=== PATIENT | male | born 1975 | race Two or more races ===

== ENCOUNTER 2024-09-18 08:02 | Inpatient (IN) | payer MEDICAID, OTHER ==
[~2024-09-18] VITALS: Ht 167.6 cm; Wt 100.0 kg
[2024-09-18 08:30] VITALS: PULSE 81; RESP 24; O2SAT 98
--- NOTE | 2024-09-18 08:31 | ED.PDOC ---
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 Patient does have a history of coronary artery disease hypertension he is on Plavix. He continues to smoke cigarettes. He denies any chest pain in the ER. He did have possible syncopal episode while going to the bathroom prior coming to this hospital. Chief Complaint: Syncope Time Seen by MD: 08:07 Reviewed Notes: Nurses Notes, Medications, Allergies Information Source: Patient, Emergency Med Personnel Mode of Arrival: EMS Severity: Moderate Timing: Hours Duration: Since onset Past Medical History PAST MEDICAL HISTORY: CAD, HTN Surgical History: Denies all surgeries Social History Smoker: Cigarettes Alcohol: Denies ETOH Use Drugs: Denies Drug Use Constitutional: denies: chills, diaphoresis, fatigue, fever, malaise, sweats, weakness, others EENTM: denies: blurred vision, double vision, ear bleeding, ear discharge, ear drainage, ear pain, ear ringing, eye pain, eye redness, hearing loss, mouth pain, mouth swelling, nasal discharge, nose bleeding, nose congestion, nose pain, photophobia, tearing, throat pain, throat swelling, voice changes, others Respiratory: denies: cough, hemoptysis, orthopnea, SOB at rest, shortness of breath, SOB with excertion, stridor, wheezing, others Cardiovascular: reports: chest pain, syncope; denies: dizzy spells, diaphoresis, Dyspnea on exertion, edema, irregular heart beat, left arm pain, lightheadedness, palpitations, PND, others Gastrointestinal: denies: abdomen distended, abdominal pain, blood streaked alanna wels, constipated, diarrhea, dysphagia, difficulty swallowing, hematemesis, melena, nausea, poor appetite, poor fluid intake, rectal bleeding, rectal pain, vomiting, others Genitourinary: denies: burning, dysuria, flank pain, frequency, hematuria, incontinence, penile discharge, penile sore, pain, testicle pain, testicle swelling, urgency, others Neurological: reports: dizziness; denies: fainting, headache, left sided numbness, left sided weakness, numbness, paresthesia, pre-existing deficit, right sided numbness, right sided weakness, seizure, speech problems, tingling, tremors, weakness, others Musculoskeletal: denies: back pain, gout, joint pain, joint swelling, muscle pain, muscle stiffness, neck pain, others Integumetry: denies: bruises, change in color, change in hair/nails, dryness, laceration, lesions, lumps, rash, wounds, others Allergic/Immunocompromised: denies: Difficulty Healing, Frequent Infections, Hives, Itching, others Hematologic/Lymphatic: denies: anemia, blood clots, easy bleeding, easy bruising, swollen glands, others Endocrine: denies: excessive hunger, excessive sweating, excessive thirst, excessive urination, flushing, intolerance to cold, intolerance to heat, unexplained weight gain, unexplained weight loss, others Psychiatric: denies: anxiety, bipolar disorder, depression, hopeless, panic dis order, schizophrenia, sleepless, suicidal, others Physical Exam General Appearance: Moderate Distress HEENT: Normal ENT Inspection, Pharynx Normal, TMs Normal Neck: Full Range of Motion, Non-Tender, Normal, Normal Inspection Respiratory: Chest Non-Tender, Lungs Clear, No Accessory Muscle Use, No Respiratory Distress, Normal Breath Sounds Cardiovascular: No Edema, No JVD, No Murmur, No Gallop, Normal Peripheral Pulses, Regular Rate/Rhythm Breast Exam: Deferred Gastrointestinal: No Organomegaly, Non Tender, No Pulsatile Mass, Normal Bowel Sounds, Soft Genitalia: Deferred Pelvic: Deferred Rectal: Deferred Extremities: No calf tenderness, Normal capillary refill, Normal inspection, Normal range of motion, Non-tender, No pedal edema Musculoskeletal : Apperance: Normal Neurologic: Alert, production line II-XII nml as Tested, No Motor Deficits, Normal Affect, Normal Mood, No Sensory Deficits Cerebellar Function: NOT DONE Reflexes: NOT DONE Skin: Dry, Normal Color, Warm Peripheral Pulses: 3+ Radial (R), 3+ Radial (L) Lymphatic: No Adenopathy Was a procedure done? Was a procedure done?: No EKG EKG : Pulse Rate (adult): 87 Cardiac Rhythm: NSR Differential Dx Considerations may include: Coronary artery disease Electrolyte imbalance X-Ray, Labs, Meds, VS Vital Signs Date Time Temp Pulse Resp B/P (MAP) Pulse Ox O2 Delivery O2 Flow Rate FiO2 09/18/24 09:00 82 09/18/24 08:38 87 09/18/24 08:22 98.2 80 16 129/98 100 98.2 09/18/24 08:08 87 Lab Test 09/18/24 08:45 Range/Units White Blood Count 14.3 H 4.4-10.8 10^3/uL Red Blood Count 3.63 L 4.5-5.90 10^6/uL Hemoglobin 10.7 L 13.5-17.5 g/dL Hematocrit 32.2 L 41.0-53.0 % Mean Corpuscular Volume 88.8 80.0-100.0 fL Mean Corpuscular Hemoglobin 29.6 28.0-32.0 pg Mean Corpuscular Hemoglobin Concent 33.4 32.0-36.0 g/dL Red Cell Distribution Width 13.9 11.8-14.3 % Platelet Count 229 140-450 10^3/uL Mean Platelet Volume 9.8 6.9-10.8 fL Neutrophils (%) (Auto) 73.6 37.0-80.0 % Lymphocytes (%) (Auto) 18.4 10.0-50.0 % Monocytes (%) (Auto) 7.0 0.0-12.0 % Eosinophils (%) (Auto) 0.6 0.0-7.0 % Basophils (%) (Auto) 0.4 0.0-2.0 % Neutrophils # (Auto) 10.5 H 1.6-8.6 10 ^3/uL Lymphocytes # (Auto) 2.6 0.4-5.4 10 ^3/uL Monocytes # (Auto) 1.0 0-1.3 10 ^3/uL Eosinophils # (Auto) 0.1 0-0.8 10 ^3/uL Basophils # (Auto) 0.1 0-0.2 10 ^3/uL Nucleated Red Blood Cells 0.0 % Sodium Level Pending Potassium Level Pending Chloride Level Pending Carbon Dioxide Level Pending Anion Gap Pending Blood Urea Nitrogen Pending Creatinine Pending Glomerular Filtration Rate Calc Pending BUN/Creatinine Ratio Pending Serum Glucose Pending Calcium Level Pending Troponin I High Sensitivity Pending Current Medications Medications (Trade) Dose Ordered Sig/Nikko Route Start Time Stop Time Status Last Admin Clopidogrel Bisulfate (Plavix) 75 mg ONCE ONCE PO 09/18/24 08:30 09/18/24 08:31 DC 09/18/24 08:49 Patient alert. Complaining of chest pain dizziness. Vitals stable. Answering all questions. Was given Plavix. EKG reviewed does not show any acute changes. History of coronary artery disease. Cardiology consultation. Continues to smoke cigarettes. Counseled patient on effects of smoking cigarettes for 15 minutes. Explained to the patient. Continue monitoring. [facility] [id number] [place] [id number] Ph: [phone] DIAGNOSTIC IMAGING Diagnostic Imaging Report : [id number] Signed PATIENT: ROQUE DONOVANT: [id number] UNIT: [id number] : 1975 LOC: ER ROOM / BED: / AGE / SEX: 49 / M ADM STATUS: REG ER SERVICE 7 ORDERING PHYSICIAN: HAYDEN SHAW MD PROCEDURE(s): CXRP - CHEST PORTABLE REASON: sob ORDER NUMBER(s): [id number], ACCESSION NUMBER(s): [id number] CHEST RADIOGRAPH Indication: sob Technique: Single frontal view of the chest was obtained COMPARISON: None FINDINGS: Lines and Tubes: None Lungs: Clear Pleura: No effusion. No pneumothorax. Cardiomediastinal contours: Unremarkable Bones: Unremarkable IMPRESSION: No acute disease. ATED BY: NATHANIEL SHAH MD DICTATED DATE/TIME: 09/18/24857 SIGNED BY: NATHANIEL SHAH MD SIGNED DATE/TIME: 09/18/24857 CC: Time of 1ST Reevaluation: 08:37 Reevaluation 1ST: Unchanged Patient Education/Counseling: Diagnosis, Treatment, Prognosis Family Education/Counseling: No Family Present SEPSIS Sepsis Screen Physician Orders Electrocardigram (09/18/24 08:17) Electrocardigram (09/18/24 09:17) Electrocardigram (09/18/24 11:17) Troponin-I Hs (09/18/24 08:28) Chest Portable (09/18/24 08:28) Urinalysis (09/18/24 08:28) Basic Metabolic Panel (09/18/24 08:28) Troponin-I Hs (09/18/24 09:28) Troponin-I Hs (09/18/24 11:28) Vital Signs Date Time Temp Pulse Resp B/P (MAP) Pulse Ox O2 Delivery O2 Flow Rate FiO2 09/18/24 09:00 82 09/18/24 08:38 87 09/18/24 08:22 98.2 80 16 129/98 100 98.2 09/18/24 08:08 87 Laboratory Tests Test 09/18/24 08:45 White Blood Count 14.3 10^3/uL (4.4-10.8) H Medications Medications Dose Ordered Sig/Nikko Route Start Time Stop Time Status Last Admin Dose Admin Clopidogrel Bisulfate 75 mg ONCE ONCE PO 09/18/24 08:30 09/18/24 08:31 DC 09/18/24 08:49 Departure 1 Departure Time of Disposition: 08:38 Impression: Primary Impression: NSTEMI (non-ST elevated myocardial infarction) Disposition: ADMITTED INPATIENT Admit to: Med Surg Condition: Guarded Critical Care Note Critical Care Time?: Yes (90 min-critical care time only) Stability Stability form required: No Heart Score Heart Score: Heart Score Response (Comments) Value History Slightly Suspicious 0 EKG Normal 0 Age 45-64 1 Risk Factors >3 or Hx ASHD 2 Troponin >3 x's Normal limit 2 Total 5 I personally scribed for HAYDEN SHAW MD ([email or web address]) on 09/18/24 at 09:05. Electronically submitted by Sammi Lorenz ([email or web address]). HAYDEN SHAW MD Sep 18, 2024 08:31
[2024-09-18] MEDS: CLOPIDOGREL BISULFATE 75 MG TAB PO ONE (08:49)
[2024-09-18 09:01] LABS: Hematocrit 32.2 % (41.0-53.0); Hemoglobin 10.7 g/dL (13.5-17.5); Mean Corpuscular Hemoglobin 29.6 pg (28.0-32.0); Mean Corpuscular Volume 88.8 fL (80.0-100.0); Nucleated Red Blood Cells % 0.0 %
--- NOTE | 2024-09-18 09:01 | DVH ---
CHEST RADIOGRAPH Indication: sob Technique: Single frontal view of the chest was obtained COMPARISON: None FINDINGS: Lines and Tubes: None Lungs: Clear Pleura: No effusion. No pneumothorax. Cardiomediastinal contours: Unremarkable Bones: Unremarkable IMPRESSION: No acute disease.
[2024-09-18 09:12] LABS: Potassium 4.3 mmol/L (3.5-5.1); Sodium 143 mmol/L (136-145)
[2024-09-18 09:13] LABS: Anion Gap 8 (5-15); Carbon Dioxide 20 mmol/L (20-31)
[2024-09-18 09:15] LABS: Calcium 8.6 mg/dL (8.7-10.4)
[2024-09-18 09:17] LABS: Chloride 115 mmol/L (98-107)
[2024-09-18 09:19] LABS: BUN/Creatinine Ratio 63.8 (10.0-20.0); Blood Urea Nitrogen 74 mg/dL (9-23); Glucose 110 mg/dL (74-106)
[2024-09-18] MEDS: SODIUM CHLORIDE 0.9% 1,000 ML IV ONE (12:12)
[2024-09-18 12:36] LABS: Urine Protein, UAD Negative (Negative)
[2024-09-18] MEDS ORDERED: HYDROcodone-ACET 5/325MG TAB PO PRN (15:15)
[2024-09-18] MEDS ORDERED: ACETAMINOPHEN 500 MG TAB or CAP PO PRN (15:15)
[2024-09-18] MEDS ORDERED: MORPHINE SULFATE INJ 2 MG/ml SYRG IV PRN ×2 (15:15)
[2024-09-18] MEDS ORDERED: NITROGLYCERIN 0.4 MG SL TAB SL PRN (15:15)
--- NOTE | 2024-09-18 15:16 | DVHHP2 ---
History of Present Illness Reason for Visit: Chest pain, nausea, vomiting, diaphoresis History of Present Illness Patient is a 49-year-old male transferred from [facility] with elevated troponin and rule out ACS. Patient presented to the hospital with substernal chest discomfort, diaphoresis, nausea, and dyspnea. With the time of assessment, patient continues to have nausea. Denies any chest pain at this time. Patient did have mild elevation in troponin levels. 12 lead ECG was assess, without any acute ST changes noted. Patient does have a significant history of stent placement x2, primary hypertension, and current nicotine dependence. Patient states he has been compliant with his dual antiplatelet therapy. Patient will be admitted in the hospital for further cardiac workup as well as treatment for his current symptoms. Cardiovascular: CAD, HTN, NE Past Surgical History: Other (ESWL. 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 Review of Systems Constitutional: No: Fever, Chills, Sweats, Weakness, Malaise, Other Eyes: No: Pain, Vision change, Conjunctivae inflammation, Eyelid inflammation, Other, Redness ENT: No: Ear pain, Ear discharge, Nose pain, Nose discharge, Nose congestion, Mouth pain, Mouth swelling, Throat pain, Throat swelling, Other Respiratory: No: Cough, Dry, Shortness of breath, SOB with excertion, Wheezing, Hemoptysis, Pleuritic Pain, Sputum, Wheezing, Other Cardiovascular: Chest Pain Gastrointestinal: Nausea Genitourinary: No Dysuria, No Frequency, No Incontinence, No Hematuria, No Retention, No Other Musculoskeletal: No: other, neck pain, shoulder pain, arm pain, back pain, hand pain, leg pain, foot pain Skin: No: Rash, Lesions, Jaundice, Bruising, Other Neurological: No: Weakness, Numbness, Incoordination, Change in speech, Conf usion, Seizures, Other Allergies: Coded Allergies: NO KNOWN ALLERGIES (Unverified , 09/18/24) Exam Vital Signs Vital Signs Date Time Temp Pulse Resp B/P (MAP) Pulse Ox O2 Delivery O2 Flow Rate FiO2 09/18/24 12:00 71 27 104/65 (78) 98 09/18/24 08:30 Room Air* 0 21 09/18/24 08:30 98.8 98.8 General Appearance: Alert, Oriented X3, Cooperative, moderate distress HEENT: Atraumatic Respiratory: Clear to auscultation, Normal air movement Cardiovascular: Normal S1, Normal S2 Abdominal: Normal bowel sounds, Soft, No tenderness Extremities: No clubbing, No cyanosis, No edema, Normal pulses, No tenderness/swelling Neuro: Normal speech Psych/Mental Status: Mental status NL, Mood NL Labs/Xrays Labs Test 09/18/24 11:53 09/18/24 11:10 09/18/24 08:45 Range/Units Troponin I High Sensitivity 71 *H </=54 ng/L Urine Color Light-yellow Yellow Urine Clarity Clear Clear Urine pH 5.0 5.0-9.0 Urine Specific [place] 1.022 1.001-1.035 Urine Protein Negative Negative Urine Ketones Negative Negative Urine Blood Trace H Negative /uL Urine Nitrite Negative Negative Urine Bilirubin Negative Negative Urine Urobilinogen Normal Negative mg/dL Urine Leukocyte Esterase Negative Negative /uL Urine RBC 1 0 - 3 /hpf Urine Microscopic WBC 1 0-3 /HPF Urine Squamous Epithelial Cells Few <5 /hpf Urine Bacteria None seen None Seen /hpf Urine Glucose Normal Normal mg/dL White Blood Count 14.3 H 4.4-10.8 10^3/uL Red Blood Count 3.63 L 4.5-5.90 10^6/uL Hemoglobin 10.7 L 13.5-17.5 g/dL Hematocrit 32.2 L 41.0-53.0 % Mean Corpuscular Volume 88.8 80.0-100.0 fL Mean Corpuscular Hemoglobin 29.6 28.0-32.0 pg Mean Corpuscular Hemoglobin Concent 33.4 32.0-36.0 g/dL Red Cell Distribution Width 13.9 11.8-14.3 % Platelet Count 229 140-450 10^3/uL Mean Platelet Volume 9.8 6.9-10.8 fL Neutrophils (%) (Auto) 73.6 37.0-80.0 % Lymphocytes (%) (Auto) 18.4 10.0-50.0 % Monocytes (%) (Auto) 7.0 0.0-12.0 % Eosinophils (%) (Auto) 0.6 0.0-7.0 % Basophils (%) (Auto) 0.4 0.0-2.0 % Neutrophils # (Auto) 10.5 H 1.6-8.6 10 ^3/uL Lymphocytes # (Auto) 2.6 0.4-5.4 10 ^3/uL Monocytes # (Auto) 1.0 0-1.3 10 ^3/uL Eosinophils # (Auto) 0.1 0-0.8 10 ^3/uL Basophils # (Auto) 0.1 0-0.2 10 ^3/uL Nucleated Red Blood Cells 0.0 % Sodium Level 143 136-145 mmol/L Potassium Level 4.3 3.5-5.1 mmol/L Chloride Level 115 H 98-107 mmol/L Carbon Dioxide Level 20 20-31 mmol/L Anion Gap 8 5-15 Blood Urea Nitrogen 74 H 9-23 mg/dL Creatinine 1.16 0.700-1.30 mg/dL Glomerular Filtration Rate Calc 77 >90 mL/min BUN/Creatinine Ratio 63.8 H 10.0-20.0 Serum Glucose 110 H 74-106 mg/dL Calcium Level 8.6 L 8.7-10.4 mg/dL SEPSIS Sepsis Screen Date sepsis recognized/suspect: Sep 18, 2024 Time Sepsis recognized/suspect: 829 Recent Procedure: No On Antibiotic Therapy: No Respiratory Rate >20: Yes Heart Rate >90: No Temp<36 C (96.8 F) or >38.3 C: No SBP <90 or MAP <65 mmHG: No New Acute Mental Status Change: No Is the patient on CPAP, BIPAP,: No Physician Orders Electrocardigram (09/18/24 08:17) Electrocardigram (09/18/24 09:17) Chest Portable (09/18/24 08:28) Insert/Manage Urinary Catheter QSHIFT (09/18/24 11:46) Admit (09/18/24 15:04) Nitroglycerin Sublingual (Ntrostat Subli (09/18/24 15:15) Morphine Sulfate Injection (09/18/24 15:15) Stat Ekg For Chest Pain (09/18/24 15:04) Notify Of Changes From Base (09/18/24 15:04) Social Worker Delinquency Prevention For 24 Hours (09/18/24 15:04) Emergency Dysrhythmia Protocol (09/18/24 15:04) Rhythm Strips Once Every Shift (09/18/24 15:04) Oxygen By Nasal Cannula (09/18/24 15:04) * Cardiology Consult (09/18/24 15:04) Troponin-I Hs (09/18/24 18:00) Troponin-I Hs (09/19/24 00:00) C-Reactive Protein (09/18/24 15:04) Electrocardigram (09/19/24 05:00) Echo 2d Mode Cardiac Dop (09/18/24 15:04) Aspirin Enteric Coated Tablet (Ecotrin E (09/19/24 10:00) Morphine Sulfate Injection (09/18/24 15:15) Hydrocodone-Acet 5/325mg Tab (Ursa 5/32 (09/18/24 15:15) Acetaminophen Tab Or Cap (Tylenol Tablet (09/18/24 15:15) Ondansetron Hcl (Zofran) (09/18/24 15:15) Cardiac Diet-2gna,Lofat,Lochol (09/18/24 Dinner) Carvedilol Tablet (Coreg Tablet) (09/18/24 22:00) Vital Signs Date Time Temp Pulse Resp B/P (MAP) Pulse Ox O2 Delivery O2 Flow Rate FiO2 09/18/24 12:00 71 27 104/65 (78) 98 09/18/24 11:22 68 09/18/24 10:00 92 15 126/80 (95) 97 09/18/24 09:00 82 09/18/24 08:38 87 09/18/24 08:30 81 24 98 Room Air* 0 21 09/18/24 08:30 98.8 81 24 120/81 (94) 98 98.8 09/18/24 08:22 98.2 80 16 129/98 100 98.2 09/18/24 08:08 87 Laboratory Tests Test 09/18/24 08:45 White Blood Count 14.3 10^3/uL (4.4-10.8) H Medications Medications Dose Ordered Sig/Nikko Route Start Time Stop Time Status Last Admin Dose Admin Clopidogrel Bisulfate 75 mg ONCE ONCE PO 09/18/24 08:30 09/18/24 08:31 DC 09/18/24 08:49 75 MG Sodium Chloride 1,000 ml @ 1,000 mls/hr Q1H ONCE IV 09/18/24 12:00 09/18/24 12:59 DC 09/18/24 12:12 1,000 MLS/HR Assessment/Plan Assessment/Plan Impression: ACS, probably NSTEMI type 2 History of CAD with stent placement x2 Nicotine dependence Obesity Plan: -admit to telemetry unit -cardiology consultation -echocardiogram -restart dual antiplatelet therapy -check lipid panel -smoking cessation education -antiemetics -pain management Total time spent with patient discussing and formulating plan of care: 35 minutes. This medical document was created using an electronic medical record system with [employer] (f[employer]) dictation system. Although this document has been carefully reviewed, there may still be some phonetic and typographical errors. These areas are purely typographical due to imperfections of the software programs, and do not reflect any compromise in the patient's medical care. Plan discussed with: Other (RN) My Orders Orders - SADIA CLEMENTS MILL RECORDER Procedure Category Date Status Time Admit ADMIT 09/18/24 Transmitted 15:04 Nitroglycerin PHA 09/18/24 Transmitted Sublingual (Ntrostat 15:15 Morphine Sulfate PHA 09/18/24 Transmitted Injection 15:15 Stat Ekg For Chest DARA 09/18/24 Transmitted Pain 15:04 Notify Md Of Changes DARA 09/18/24 Transmitted From Base 15:04 Social Worker Delinquency Prevention For [facility] [place] 09/18/24 Transmitted 24 Hours 15:04 Emergency Dysrhythmia DARA 09/18/24 Transmitted Protocol 15:04 Rhythm Strips Once [facility] [place] 09/18/24 Transmitted Every Shift 15:04 Oxygen By Nasal RT 09/18/24 Transmitted Cannula 15:04 * Cardiology Consult CONS 09/18/24 Transmitted 15:04 Troponin-I Hs LAB 09/18/24 Transmitted 18:00 Troponin-I Hs LAB 09/19/24 Verified 00:00 C-Reactive Protein LAB 09/18/24 Transmitted 15:04 Electrocardigram EKG 09/19/24 Transmitted 05:00 Echo 2d Mode Cardiac US 09/18/24 Transmitted DOP 15:04 Aspirin Enteric PHA 09/19/24 Transmitted Coated Tablet 10:00 Morphine Sulfate PHA 09/18/24 Transmitted Injection 15:15 Hydrocodone-Acet PHA 09/18/24 Transmitted 5/325mg Tab (Ursa 15:15 Acetaminophen Tab Or PHA 09/18/24 Transmitted Cap (Tylenol Tablet 15:15 Ondansetron Hcl PHA 09/18/24 Transmitted (Zofran) 15:15 Cardiac DIET 09/18/24 Transmitted Diet-2gna,Lofat,Lochol Dinner Carvedilol Tablet PHA 09/18/24 Transmitted (Coreg Tablet) 22:00 Date of Service: Sep 18, 2024 Billing Provider: SADIA CLEMENTS NP Common Visit Codes: [id number] INP/OBS CARE (HIGH) SADIA CLEMENTS NP Sep 18, 2024 15:16
[2024-09-18] MEDS: ONDANSETRON HCL 4 MG/2 ML VIAL IV PRN (15:57)
[2024-09-18 17:04] LABS: Cannabinoid Screen, Urine Neg (NEGATIVE)
[2024-09-18 17:05] LABS: Amphetamine Screen, Urine Neg (NEGATIVE); Barbiturate Scree,Urine Neg (NEGATIVE); Benzodiazephine Screen, Urine Neg (NEGATIVE); Cocaine Screen, Urine Neg (NEGATIVE); Opiate Scree,Urine Neg (NEGATIVE); Phencyclidine Screen, Urine Neg (NEGATIVE)
--- NOTE | 2024-09-18 17:48 | DVHINCON2 ---
Date Seen: Sep 18, 2024 Referring Physician SUZAN Dumont Reason for Consultation ACS with history of CAD and PTCA History of Present Illness This is a pleasant 49-year-old man who presented to was transferred to our facility from [facility] for continuation of care. 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 Denies chest pain, SOB, or palpitations. During admission to our emergency room the patient ambulated to the bathroom and got dizzy and lightheaded consult a fall injury. He has undergone multiple 12 lead electrocardiograms x3 revealing a sinus rhythm without evidence of acute ST segment changes. The patient reports a history of coronary artery disease undergoing successful PTCA of an unknown vessel x1 MILLER for which he was placed on DAPT at [facility] in [place] on 10/2022. At that time, he was also found with a 75% blockage of another vessel without catheter based intervention. Follows up with primary machinist instructor Dr. Slade in [place]. Other medical history includes hypertension, dyslipidemia, current tobacco use including 5 pack-years, and obesity. Past Medical History Past medical history reviewed. No other significant than mentioned above. Past Surgical History PTCA x1 MILLER, 10/2022 Family History Family history reviewed. Not significant for cardiovascular disease. Social History Denies the use of illicit drugs or alcohol. Admits to tobacco use. Allergies: Coded Allergies: NO KNOWN ALLERGIES (Unverified , 09/18/24) Home Meds Home medications reviewed. Current Medications Current Medications Medications (Trade) Dose Ordered Sig/Nikko Route PRN Reason Start Time Stop Time Status Last Admin Nitroglycerin (Ntrostat Sublingual) 0.4 mg Q5MINP PRN SL FOR CHEST PAIN 09/18/24 15:15 Morphine Sulfate 2 mg Q30M PRN IV FOR CHEST PAIN 09/18/24 15:15 Aspirin (Ecotrin Enteric Coated Tablet) 81 mg DAILY PO 09/19/24 10:00 Morphine Sulfate 1 mg Q4HPRN PRN IV SEVERE PAIN (7-10 PAIN SCALE) 09/18/24 15:15 Acetaminophen/ Hydrocodone Bitart ([place] 5/325MG Tab) 1 tab Q6HPRN PRN PO MODERATE PAIN (4-6 PAIN SCALE) 09/18/24 15:15 Acetaminophen (Tylenol Tablet Or Capsule) 500 mg Q8HP PRN PO PAIN SCALE 1-3 OR TEMP>100.4 09/18/24 15:15 Ondansetron HCl (Zofran) 4 mg Q6HP PRN IV NAUSEA / VOMITING 09/18/24 15:15 09/18/24 16:02 Carvedilol (Coreg Tablet) 3.125 mg Q12HR PO 09/18/24 22:00 Review of Systems Constitutional: Generalized weakness Ears, Nose, & Throat: No symptom reported Eyes: No symptom reported Neurological: Lightheadedness, dizziness Pulmonary/Respiratory: No symptom reported Cardiovascular: No symptom reported Gastrointestinal: No symptom reported Genitourinary: No symptom reported Musculoskeletal: No symptom reported Skin: No symptom reported Psychiatric: No symptom reported Endocrine: No symptom reported Hemotologic/Lymphatic: No symptom reported Vital Signs Vital Signs Date Time Temp Pulse Resp B/P (MAP) Pulse Ox O2 Delivery O2 Flow Rate FiO2 09/18/24 16:00 84 18 132/79 (96) 99 09/18/24 08:30 Room Air* 0 21 09/18/24 08:30 98.8 98.8 Physical Exam General Appearance: Cooperative. Well developed. Obese. In no acute distress Head Exam: Normal inspection Neck Exam: Normal inspection. Non-tender. Normal alignment Pulmonary/Respiratory: Chest non-tender. Coarse bilateral breath sounds, inspiratory/expiratory wheezing Cardiovascular/Chest: Regular rate and rhythm. S1, S2. NSR. No murmurs. No JVD. Peripheral Pulses: 2+ Radial (R). 2+ Radial (L). 2+ Pedal (R). 2+ Pedal (L) Abdominal Exam: Normal bowel sounds. Soft. Nontender. No hepatospenomegaly. No masses Ankle Exam: Negative ankle edema Lower extremities: Negative lower extremity edema Neuro/Mental Status: A&O x4. Coherent Thoughts/Psych: Normal thought pattern. Appropriate mood and affect. Good judgement and insight Appearance: In no acute distress Skin Exam: Normal inspection. Normal color. Warm. Dry Labs/Diagnostic Data Labs Test 09/18/24 11:53 09/18/24 11:10 09/18/24 08:45 Range/Units Troponin I High Sensitivity 71 *H </=54 ng/L C-Reactive Protein High Sensitivity 0.15 <1.0 mg/dL Urine Color Light-yellow Yellow Urine Clarity Clear Clear Urine pH 5.0 5.0-9.0 Urine Specific [place] 1.022 1.001-1.035 Urine Protein Negative Negative Urine Ketones Negative Negative Urine Blood Trace H Negative /uL Urine Nitrite Negative Negative Urine Bilirubin Negative Negative Urine Urobilinogen Normal Negative mg/dL Urine Leukocyte Esterase Negative Negative /uL Urine RBC 1 0 - 3 /hpf Urine Microscopic WBC 1 0-3 /HPF Urine Squamous Epithelial Cells Few <5 /hpf Urine Bacteria None seen None Seen /hpf Urine Glucose Normal Normal mg/dL Urine Opiates Screen Neg NEGATIVE Urine Fentanyl Screen Neg NEGATIVE Urine Barbiturates Screen Neg NEGATIVE Urine Phencyclidine Screen Neg NEGATIVE Urine Amphetamines Screen Neg NEGATIVE Urine Benzodiazepines Screen Neg NEGATIVE Urine Cocaine Screen Neg NEGATIVE Urine Cannabinoids Screen Neg NEGATIVE White Blood Count 14.3 H 4.4-10.8 10^3/uL Red Blood Count 3.63 L 4.5-5.90 10^6/uL Hemoglobin 10.7 L 13.5-17.5 g/dL Hematocrit 32.2 L 41.0-53.0 % Mean Corpuscular Volume 88.8 80.0-100.0 fL Mean Corpuscular Hemoglobin 29.6 28.0-32.0 pg Mean Corpuscular Hemoglobin Concent 33.4 32.0-36.0 g/dL Red Cell Distribution Width 13.9 11.8-14.3 % Platelet Count 229 140-450 10^3/uL Mean Platelet Volume 9.8 6.9-10.8 fL Neutrophils (%) (Auto) 73.6 37.0-80.0 % Lymphocytes (%) (Auto) 18.4 10.0-50.0 % Monocytes (%) (Auto) 7.0 0.0-12.0 % Eosinophils (%) (Auto) 0.6 0.0-7.0 % Basophils (%) (Auto) 0.4 0.0-2.0 % Neutrophils # (Auto) 10.5 H 1.6-8.6 10 ^3/uL Lymphocytes # (Auto) 2.6 0.4-5.4 10 ^3/uL Monocytes # (Auto) 1.0 0-1.3 10 ^3/uL Eosinophils # (Auto) 0.1 0-0.8 10 ^3/uL Basophils # (Auto) 0.1 0-0.2 10 ^3/uL Nucleated Red Blood Cells 0.0 % Sodium Level 143 136-145 mmol/L Potassium Level 4.3 3.5-5.1 mmol/L Chloride Level 115 H 98-107 mmol/L Carbon Dioxide Level 20 20-31 mmol/L Anion Gap 8 5-15 Blood Urea Nitrogen 74 H 9-23 mg/dL Creatinine 1.16 0.700-1.30 mg/dL Glomerular Filtration Rate Calc 77 >90 mL/min BUN/Creatinine Ratio 63.8 H 10.0-20.0 Serum Glucose 110 H 74-106 mg/dL Calcium Level 8.6 L 8.7-10.4 mg/dL Assessment Acute coronary syndrome Rule out progressive coronary artery disease Coronary artery disease status post PTCA X 1DES Hypertension Dyslipidemia Nicotine dependence Obesity Plan/Recommendation (Dr. Trejo) The patient has been scheduled for a cardiac catheterization with coronary angiogram at 1st available. All risks and benefits of the procedure were discussed with the patient who agrees to proceed with intervention. All questions answered. In the meantime, continue single-antiplatelet therapy, lipid lowering agent, and re-establish home antihypertensive therapy. Continue with a transthoracic echocardiogram to evaluate cardiac function. Initiate nicotine patch and smoking cessation consult. Monitor ECG changes closely and notify. Continue chest pain protocol. Further orders per clinical course. Thank you for allowing us to participate in this patient's care. Please call if you have any questions or concerns. This medical document was created using an electronic medical record system with voice recognition software and computerized dictation system. Although this document has been carefully reviewed, there might still be some phonetic and typographical errors. Occasional wrong-word or ``sound-alike substitutions may have occurred due to the inherent limitations of voice recognition software. These areas are purely typographical due to imperfections of the software programs and do not reflect any compromise in the patient's medical care. Pl ease read the chart carefully and recognize, using context, where these substitutions have occurred. Plan discussed with: Patient, Other NYHA Physical activity limitations: NA Date of Service: Sep 19, 2024 Billing Provider: MARITZA PRATER Cardiology Common Codes: [id number] INP/OBS CARE (High) MARITZA PRATER Sep 18, 2024 17:48
--- NOTE | 2024-09-18 18:29 | ECG ---
[facility] Test Date: 2024-09-18 Test Time: 11:22:43 Pat Name: SHERLY DONOVAN Department: [facility] ED Patient ID: [facility]-[id number] Room: 0295T Gender: M Vendette: melva : 1975 Requested By: HAYDEN SHAW Order Number: [id number] Reading MD: Kevin Juárez Measurements Intervals [place] Rate: 68 P: -7 AR: 121 QRS: 8 QRSD: 84 T: 25 QT: 378 QTc: 402 Interpretive Statements Sinus rhythm Abnormal R-wave progression, early transition Borderline repolarization abnormality Baseline wander in lead(s) V1 Electronically Signed On 09-22-2024 18:05:57 PDT by Kevin Juárez Please click the below link to view image of tracing.
--- NOTE | 2024-09-18 19:03 | DVH ---
CT HEAD WITHOUT CONTRAST Indication: Severe dizziness EXAM DATE: 09/18/2024 06:34 PM COMPARISON: None TECHNIQUE: CT of the head without intravenous contrast. RADIATION DOSE: CTDIvol: 64.67 mGy, DLP: 64.67 mGy*cm FINDINGS: There is no intracranial hemorrhage. There is no extra-axial fluid, mass, mass effect or midline shif t. The ventricles are midline and normal in size. Basilar cisterns are patent. Carreon-white differentia tion is maintained. Mild right maxillary sinus mucosal thickening. Old right medial orbital wall fracture. Small right mastoid effusion.. Partial sclerosis of the right mastoids Imaged portion of the orbits are unremarka ble. IMPRESSION: No intracranial hemorrhage or mass effect. Small right mastoid effusion. Partial sclerosis of the right mastoids could represent sequela of clamper day mastoiditis.
[2024-09-18] MEDS: ONDANSETRON HCL 4 MG/2 ML VIAL IV ONE (19:28)
[2024-09-18] MEDS: LACTATED RINGER'S 1,000 ML IV SCH (22:27)
[2024-09-18] MEDS: CARVEDILOL 3.125 MG TAB PO SCH (22:33)
[2024-09-18] MEDS: PROCHLORPERAZINE EDISYLATE 5 MG/ML 2ML VIAL IV PRN (22:33)
[2024-09-18] MEDS: IOHEXOL 350 MG/ML 100ML IJ ONE (23:39)
[2024-09-19] VITALS (12 sets, daily range): BP systolic 115–137; BP diastolic 57–84; PULSE 67–98; RESP 14–22; TEMP 97.9–98.8; O2SAT 97–100
--- NOTE | 2024-09-19 00:20 | DVH ---
CTA Chest with intravenous contrast INDICATION: Elevated D-dimer COMPARISON: XY CHEST PORTABLE on DOS: 09/18/24 TECHNIQUE: Multidetector spiral CTA of the chest was performed of the chest with intravenous contrast . PULMONARY ANGIOGRAPHY PROTOCOL was utilized using a bolus-tracking technique centered on the main p ulmonary artery. Axial, coronal and sagittal multiplanar and MIP reformats were performed. Radiation Dose : 1. Chest: CTDI volume is 29 mGy. Dose-length product is 1099 mGy*cm The dose indicators for CT are the volume Computed Tomography (CT) Dose Index (CTDIvol) and the Dose Length Product (DLP), and are measured in units of mGy and mGy-cm, respectively. These indicators are not patient dose, but values generated from the CT scanner acquisition factors. The report includes radiation exposure data for exposures received during this examination. Findings: Pulmonary artery: No evidence of filling defect to the level of the proximal subsegmental arteries. C entral pulmonary arteries are normal in caliber. Lower neck: Unremarkable. Lungs: No consolidation. Heart/Vascular Structures: Normal heart size. No pericardial effusion. Aorta is unremarkable. Mild c oronary atherosclerosis. Lymph Nodes: No adenopathy Pleura: No pleural effusion or significant pneumothorax. Musculoskeletal: No acute osseous abnormality. Soft tissues: Unremarkable. Upper abdomen: No acute findings. IMPRESSION: 1. No pulmonary embolism to the level of the proximal subsegmental arteries. 2. No acute thoracic finding.
[2024-09-19 04:26] LABS: Hematocrit 27.9 % (41.0-53.0); Hemoglobin 9.4 g/dL (13.5-17.5); Mean Corpuscular Hemoglobin 29.8 pg (28.0-32.0); Mean Corpuscular Volume 88.5 fL (80.0-100.0); Nucleated Red Blood Cells % 0.0 %
[2024-09-19 04:38] LABS: Potassium 4.2 mmol/L (3.5-5.1)
[2024-09-19 04:39] LABS: Anion Gap 9 (5-15); Carbon Dioxide 22 mmol/L (20-31)
[2024-09-19 04:40] LABS: INR 1.03 (0.9-1.15); Partial Thromboplastin Time 23.8 SEC (24.5-34.5); Prothrombin Time 10.9 sec (9.3-11.8)
[2024-09-19 04:42] LABS: Calcium 8.4 mg/dL (8.7-10.4); Chloride 115 mmol/L (98-107); Sodium 146 mmol/L (136-145)
[2024-09-19 04:44] LABS: BUN/Creatinine Ratio 51.1 (10.0-20.0)
[2024-09-19 04:45] LABS: Blood Urea Nitrogen 68 mg/dL (9-23); Glucose 107 mg/dL (74-106)
--- NOTE | 2024-09-19 09:54 | DVHPN2 ---
Subjective Denies any symptoms at this time Reviewed: Care Plan, H&P, Medications, Previous Orders, Radiology Changes from previous H/P or p: No Changes General: Per HPI Eyes: No Pain, No Vision change, No Conjunctivae inflammation, No Eyelid inflammation, No Other, No Redness ENT: No Ear pain, No Ear discharge, No Nose pain, No Nose discharge, No Nose congestion, No Mouth pain, No Mouth swelling, No Throat pain, No Throat swelling, No Other Cardiovascular: Chest Pain Respiratory: No Cough, No Dry, No Shortness of breath, No SOB with excertion, No Wheezing, No Hemoptysis, No Pleuritic Pain, No Sputum, No Other Gastrointestinal: Nausea Genitourinary: No Dysuria, No Frequency, No Incontinence, No Hematuria, No Retention, No Other Musculoskeletal: No other, No neck pain, No shoulder pain, No arm pain, No back pain, No hand pain, No leg pain, No foot pain Skin: No Rash, No Lesions, No Jaundice, No Bruising, No Other Objective Vitals Vital Signs Date Time Temp Pulse Resp B/P (MAP) Pulse Ox O2 Delivery O2 Flow Rate FiO2 09/19/24 06:00 97.9 88 20 129/95 (106) 97 97.9 09/18/24 19:20 Room Air* 0 21 Intake/Output Intake and Output 09/19/24 07:00 Intake Total 600 ml Output Total 1500 ml Balance -900 ml Intake Oral 0 ml IV Total 600 ml Tube Feeding 0 ml Blood Product 0 ml Other 0 ml Output Urine Total 1500 ml Stool Total 0 ml Urine/Stool Mix 0 ml Gastric Drainage Total 0 ml Emesis 0 ml Chest Tube Drainage Total 0 ml Drainage Total 0 ml Blood Draw 0 ml Other 0 ml General Appearance: Alert, Oriented X3, Cooperative, No acute distress HEENT: Atraumatic, PERRLA Cardiovascular: Normal S1, Normal S2 Abdomen: Normal bowel sounds, Soft, No tenderness, No hepatospenomegaly, No masses Musculoskeletal: Normal sensory function, Normal motor function Neuro: Normal speech Skin: Dry, Intact Psych/Mental Status: Mental status NL, Mood NL Medications Current Medications Medications Dose Ordered Sig/Nikko Route Start Time Stop Time Status Last Admin Dose Admin Nitroglycerin 0.4 mg Q5MINP PRN SL 09/18/24 15:15 Morphine Sulfate 2 mg Q30M PRN IV 09/18/24 15:15 Aspirin 81 mg DAILY PO 09/19/24 10:00 Morphine Sulfate 1 mg Q4HPRN PRN IV 09/18/24 15:15 Acetaminophen/ Hydrocodone Bitart 1 tab Q6HPRN PRN PO 09/18/24 15:15 Acetaminophen 500 mg Q8HP PRN PO 09/18/24 15:15 Ondansetron HCl 4 mg Q6HP PRN IV 09/18/24 15:15 09/18/24 16:02 4 MG Carvedilol 3.125 mg Q12HR PO 09/18/24 22:00 09/18/24 22:33 3.125 MG Prochlorperazine Edisylate 10 mg Q4HPRN PRN IV 09/18/24 22:15 09/19/24 06:06 10 MG Lactated Ringer's 1,000 ml @ 75 mls/hr [id number] IV 09/18/24 22:15 09/18/24 22:27 75 MLS/HR Clopidogrel Bisulfate 75 mg DAILY PO 09/19/24 10:00 Atorvastatin Calcium 40 mg HS PO 09/19/24 22:00 Carvedilol 3.125 mg Q12HR PO 09/19/24 10:00 Losartan Potassium 12.5 mg DAILY PO 09/19/24 10:00 Nicotine 1 patch DAILY TD 09/19/24 10:00 Laboratory Results Laboratory Tests 09/19/24 04:00 Chemistry Test 09/19/24 04:00 Calcium Level 8.4 mg/dL (8.7-10.4) L Coagulation Test 09/18/24 18:05 09/19/24 04:00 D-Dimer, Quantitative 2.42 mg/L FEU (0.0-0.49) H Prothrombin Time 10.9 sec (9.3-11.8) Prothrombin Time INR 1.03 (0.9-1.15) Activated Partial Thromboplast Time 23.8 SEC (24.5-34.5) L Urinalysis Test 09/18/24 11:10 Urine Color Light-yellow (Yellow) Urine Clarity Clear (Clear) Urine pH 5.0 (5.0-9.0) Urine Specific [place] 1.022 (1.001-1.035) Urine Protein Negative (Negative) Urine Ketones Negative (Negative) Urine Blood Trace /uL (Negative) H Urine Nitrite Negative (Negative) Urine Bilirubin Negative (Negative) Urine Urobilinogen Normal mg/dL (Negative) Urine Leukocyte Esterase Negative /uL (Negative) Urine RBC 1 /hpf (0 - 3) Urine Microscopic WBC 1 /HPF (0-3) Urine Squamous Epithelial Cells Few /hpf (<5) Urine Bacteria None seen /hpf (None Seen) Urine Glucose Normal mg/dL (Normal) Labs and/or images reviewed: Labs reviewed by me, Image(s) reviewed by me Assessment/Plan Assessment/Plan Impression: ACS, probably NSTEMI type 2 History of CAD with stent placement x2 Nicotine dependence Obesity Plan: Events: No events overnight. Patient had CT angiogram of the chest which was negative for pulmonary embolism. Plans for left heart catheterization today -cardiology consultation : Recommendations reviewed -echocardiogram: Pending -continue dual antiplatelet therapy -check lipid panel -smoking cessation education -antiemetics -pain management -repeat labs in pain Total time spent with patient discussing and formulating plan of care: 35 minutes. This medical document was created using an electronic medical record system with Sonocine dictation system. Although this document has been carefully reviewed, there may still be some phonetic and typographical errors. These areas are purely typographical due to imperfections of the software programs, and do not reflect any compromise in the patient's medical care. Plan discussed with: Patient, Other (RN) My Orders Orders - SADIA CLEMENTS MEDICAL TECHNICIAN Procedure Category Date Status Time Admit ADMIT 09/18/24 Transmitted 15:04 Nitroglycerin PHA 09/18/24 In Process Sublingual (Ntrostat 15:15 Morphine Sulfate PHA 09/18/24 In Process Injection 15:15 Stat Ekg For Chest DARA 09/18/24 In Process Pain 15:04 Notify Of Changes DARA 09/18/24 In Process From Base 15:04 Bit And Shank Department Supervisor For DARA 09/18/24 In Process 24 Hours 15:04 Emergency Dysrhythmia DARA 09/18/24 In Process Protocol 15:04 Rhythm Strips Once DARA 09/18/24 In Process Every Shift 15:04 Oxygen By Nasal RT 09/18/24 Transmitted Cannula 15:04 * Cardiology Consult CONS 09/18/24 Transmitted 15:04 Electrocardigram EKG 09/19/24 Logged 05:00 Aspirin Enteric PHA 09/19/24 In Process Coated Tablet 10:00 Morphine Sulfate PHA 09/18/24 In Process Injection 15:15 Hydrocodone-Acet PHA 09/18/24 In Process 5/325mg Tab ([place] 15:15 Acetaminophen Tab Or PHA 09/18/24 In Process Cap (Tylenol Tablet 15:15 Ondansetron Hcl PHA 09/18/24 In Process (Zofran) 15:15 Carvedilol Tablet PHA 09/18/24 In Process (Coreg Tablet) 22:00 Echo 2d Mode Cardiac US 09/19/24 Logged DOP 15:04 Date of Service: Sep 19, 2024 Billing Provider: SADIA CLEMENTS NP Common Visit Codes: [id number] INP/OBS CARE(HIGH) SADIA CLEMENTS NP Sep 19, 2024 09:54
[2024-09-19 10:37] LABS: Cholesterol 132 mg/dL (< 200)
[2024-09-19 10:38] LABS: HDL Cholesterol 20 mg/dL (40-59); Triglycerides 221 mg/dL (< 150)
[2024-09-19] MEDS: CARVEDILOL 3.125 MG TAB PO SCH (10:47)
[2024-09-19] MEDS: LOSARTAN POTASSIUM 25 MG TAB PO SCH (10:47)
[2024-09-19] MEDS: NICOTINE 7MG/24HR TOPICAL PATCH TD SCH (11:27)
[2024-09-19] MEDS: CLOPIDOGREL BISULFATE 75 MG TAB PO SCH (11:27)
[2024-09-19] MEDS: ASPirin-EC 81 mg tab PO SCH (11:27)
[2024-09-19] MEDS: IODIXANOL 320MG/ML 100ML BTL IV ONE ×3 (11:51→14:11)
[2024-09-19] MEDS: HEPARIN SODIUM (PORCINE) 5000 UNITS/ML 1ML VIAL ONE (12:38)
[2024-09-19] MEDS: VERAPAMIL 2.5MG/ML INJ 2ML VIAL IV ONE (12:38)
[2024-09-19] MEDS: SODIUM CHL 0.9% 50 ML ONE (12:38)
[2024-09-19] MEDS: ANGIOMAX 250 MG VIAL IV ONE (12:38)
[2024-09-19] MEDS: LIDOCAINE 2%HCL (LOCAL ANESTH.) INJ 20ML MDV ONE (12:39)
[2024-09-19] MEDS: NITROGLYCERIN 50MG/250ML 250 ML IV ONE (12:39)
[2024-09-19] MEDS: MIDAZOLAM HCL 2MG/2ML 2ml VIAL (1mg/ml) ONE ×2 (12:49→14:10)
[2024-09-19] MEDS: fentaNYL CITRATE 100 MCG/2 ML VL ONE ×2 (12:49→14:10)
[2024-09-19] MEDS: CLOPIDOGREL BISULFATE 75 MG TAB ONE (14:33)
--- NOTE | 2024-09-19 15:00 | ECG ---
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
--- NOTE | 2024-09-19 15:00 | ECG ---
[facility] Test Date: 2024-09-18 Test Time: 08:58:43 Pat Name: SHERLY DONOVAN Department: [facility] ED Patient ID: [facility]-[id number] Room: 0295T Gender: M Datastage Developer: VERÓNICA : 1975 Requested By: SADIA CLEMENTS Order Number: [id number] Reading MD: Kevin Juárez Measurements Intervals [place] Rate: 82 P: 0 [place]: 121 QRS: -4 QRSD: 82 T: 37 QT: 372 QTc: 435 Interpretive Statements Sinus rhythm RSR' in V1 or V2, right VCD or RVH Electronically Signed On 09-22-2024 18:03:50 PDT by Kevin Juárez Please click the below link to view image of tracing.
--- NOTE | 2024-09-19 15:23 | DVHOP2 ---
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 sedation 15-30 mins, sedation 31-45 mins, US guided vascular access saved to pacs system, PTCA 1 vessel , PCI 1 vessel PREOPERATIVE DIAGNOSES: NSTEMI POSTOP DIAGNOSIS: DESCRIPTION OF PROCEDURE: The patient or appropriate family signed informed consent understanding the risks, benefits and alternatives of the procedure, they wished to proceed. The patient was brought to the cardiac hot plate plywood press laborer [place]. The patient was prepped in a sterile fashion. Sedation was used per cardiac cath protocol. I administered 2 mL of 2% lidocaine to the right wrist. The pulse was quite weak so with US eval showing patency of R radial artery With an antegrade front wall puncture. I cannulated the right radial artery and placed a 6-Sloven[place] Glidesheath slender. Next, an intra-arterial spasmolytic was administered. Next, a - 5French [place] catheter and JR4 and were used for coronary angiogram and LVEDP measurement and pressure pullback. HOwever the patient had significant spasm and I had to change to a femoral approach. The Radial artery had a lot of spasm . SO i abandoned radial and gave 8 cc of 2% lidocaine to the Right groin. WIth cook needle, I cannulated the R INK JET OPERATOR and placed a 6F sheath. I used a 6F JR4, and XB 3.5 for angiogram and PCI. At the completion of procedure, all guides and wires were removed, and there were no immediate complications. FINDINGS: RCA: Moderate vessel off the right sinus of Valsalva, there is mild ostial plaque. there is a 70-80% lesion just proximal and within the distal RCA stent placed in pat. PDA comes off dominant vessel . mid RCA is ectatic diseased vessel LEFT MAIN: Moderate size left main, it bifurcates into LAD and circumflex. no stenosis CIRCUMFLEX: Moderate caliber vessel coming off the left main .prox CX is patent. it gives off OM1 with a 95% ruptured plaque proximally. distal CX in av groove has moderate plaque. . LAD: LAD is a moderate caliber vessel coming of the left main. patent prox to mid LAD stent . afte the stent there appears to be an LAD bridge. INTERVENTION: We decided to proceed with coronary intervention. I started with a 6F __XB 3.5 __ Guide to intubate the _LM _. Angiomax bolus and gtt was started. Following this, I decided to wire using an .014 BMW across the culprit lesion with ease. At this time, we performed balloon angioplasty with a _2.5 x 15 mm balloon _10 __ ATMS over __15__ seconds with __1__ number of inflations. Following this, I decided to place a stent using a 3.0 x mm onyx____ stent inflated up to __16__ ATMS over 15 seconds with two separate inflations. Following this, the stent balloon removed and angio performed showing 0% residual stenosis. SHANIA pre/post: 3./3 CONCLUSIONS: 1. sp PCI to 95% OM1 ruptured plaque 2. ISR to distal RCA stent 3. patent LAD stent PLAN: Aggressive risk factor modification and medical management for the patient. 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
--- NOTE | 2024-09-19 15:25 | DVHPN2 ---
Progress Note Date Seen: Sep 19, 2024 Medical Necessity Reason Pt with a Central, PICC or Fol: No Subjective Patient reports: Feels better Objective vital signs Vital Sign Date Time Temp Pulse Resp B/P (MAP) Pulse Ox O2 Delivery O2 Flow Rate FiO2 09/19/24 11:00 86 20 114/77 (89) 99 09/19/24 08:00 Room Air* 0 21 09/19/24 08:00 98.0 98.0 Total Intake and Output 09/18/24 09/18/24 09/19/24 15:00 23:00 07:00 Intake Total 600 ml Output Total 1500 ml Balance -900 ml medications Current Medications Medications Dose Ordered Sig/Nikko Route Start Time Stop Time Status Last Admin Dose Admin Nitroglycerin 0.4 mg Q5MINP PRN SL 09/18/24 15:15 Morphine Sulfate 2 mg Q30M PRN IV 09/18/24 15:15 Aspirin 81 mg DAILY PO 09/19/24 10:00 Morphine Sulfate 1 mg Q4HPRN PRN IV 09/18/24 15:15 Acetaminophen/ Hydrocodone Bitart 1 tab Q6HPRN PRN PO 09/18/24 15:15 Acetaminophen 500 mg Q8HP PRN PO 09/18/24 15:15 Ondansetron HCl 4 mg Q6HP PRN IV 09/18/24 15:15 09/18/24 16:02 4 MG Carvedilol 3.125 mg Q12HR PO 09/18/24 22:00 09/18/24 22:33 3.125 MG Prochlorperazine Edisylate 10 mg Q4HPRN PRN IV 09/18/24 22:15 09/19/24 06:06 10 MG Lactated Ringer's 1,000 ml @ 75 mls/hr [id number] IV 09/18/24 22:15 09/18/24 22:27 75 MLS/HR Clopidogrel Bisulfate 75 mg DAILY PO 09/19/24 10:00 Atorvastatin Calcium 40 mg HS PO 09/19/24 22:00 Carvedilol 3.125 mg Q12HR PO 09/19/24 10:00 Losartan Potassium 12.5 mg DAILY PO 09/19/24 10:00 Nicotine 1 patch DAILY TD 09/19/24 10:00 Examination: GENERAL:Abnormal, HEENT:Abnormal, LUNGS:Abnormal, CVS:Abnormal, ABDOMEN:Abnormal laboratory and microbiology Laboratory Tests 09/19/24 04:00 Test 09/19/24 04:00 Range/Units Serum Glucose 107 H 74-106 mg/dL Problem List/Assessment/Plan Problem List/Assessment/Plan CAD ACS HTN obesity morbid ckd s/p pci to CX cont dapt statin fu for pci in 4 weeks with his cards Plan discussed with: Patient My Orders My Orders Orders - GISELA FISHMAN MD Procedure Category Date Status Time Cl Left Heart Cath CL 09/19/24 Taken 07:14 Post Cath Vital Signs DARA 09/19/24 In Process Q 15min Post Cath Activity DARA 09/19/24 In Process Protocol 14:52 Flat In Bed DARA 09/19/24 In Process 14:52 Date of Service: Sep 19, 2024 Billing Provider: GISELA FISHMAN MD Common Visit Codes: NOT BILLABLE GISELA FISHMAN MD Sep 19, 2024 15:25
--- NOTE | 2024-09-19 16:03 | DVHSR ---
APPROVED REPORT EXAM: Two-dimensional and M-mode echocardiogram with Doppler and color Doppler. Blood Pressure: 129/95 mmHg INDICATION ACS RISK FACTORS Height: 5'6", Weight: 220 DIMENSIONS LVDd4.1 (3.8-5.7cm)LA (2D)3.6 (1.9-4.0cm)Aortic Root3.3 (2.0-3.7cm) LVDs2.5 (2.5-4.0cm)LA (MM) (1.9-4.0cm)Aortic Cusp Exc1.1 (1.5-2.0cm) EF (%) 70.0 (55-70%)Rt. Atrium (1.9-4.0cm)Asc. Aorta cm IVSd1.5 (0.7-1.1cm)RV (D) (1.8-2.4cm) PWd1.0 (0.7-1.1cm) Mitral Valve MitralMitral Stenosis E wave0.49m/sMV Mean GR.mmHg A wave0.59m/sMV Peak GR.mmHg E/A ratio0.82D MVAcm2 DECEL [id number] 1/2 Timems Aortic Valve Aortic ValveAortic Stenosis V11.23m/Len Mean GR.5mmHg V21.54m/Len Peak GR.9mmHg LVOT Diameter2.2 (1.8-2.4cm)Doppler AVA3.03cm2 Pulmonic Valve V20.92m/s Other Information Quality : Technically LimitedRhythm : Technically limited study due to body habitus. Conclusion lvef 65 % mild LVH normal rv fucntion left atrium borderline enlarged no severe valve abnormaliteis noted
[2024-09-19] MEDS ORDERED: ASPI-325 PO (18:55)
[2024-09-19] MEDS ORDERED: CLOP75TA70 PO (18:55)
[2024-09-19] MEDS ORDERED: CARV12.544 PO (18:55)
[2024-09-19] MEDS ORDERED: LOSA-534 PO (18:55)
[2024-09-19] MEDS: ATORVASTATIN 20 MG TAB PO SCH (21:39)
--- NOTE | 2024-09-19 23:00 | DVHINCON2 ---
Date Seen: Sep 18, 2024 Referring Physician SUZAN Dumont Reason for Consultation ACS with history of CAD and PTCA History of Present Illness This is a 49-year-old male with a PMH of hypertension, dyslipidemia, current tobacco use including 5 pack-years, and obesity who was transferred to our facil ity from [facility] for continuation of care. 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 Denies chest pain, SOB, or palpitations. During admission to our emergency room the patient amb ulated to the bathroom and got dizzy and lightheaded consult a fall injury. He has undergone multiple 12 lead electrocardiograms x3 revealing a sinus rhythm without evidence of acute ST segment changes The patient reports a history of coronary artery disease undergoing successful PTCA of an unknown vessel x1 MILLER for which he was placed on DAPT at [facility] in [place] on 10/2022. At that time, he was also found with a 75% blockage of another vessel without catheter based intervention. Follows up with primary guide domestic tour Dr. Slade in [place]. Past Medical History Past medical history reviewed. No other significant than mentioned above. Past Surgical History PTCA x1 MILLER, 10/2022 Family History: Patient reports no known family medical history. Allergies: Coded Allergies: NO KNOWN ALLERGIES (Unverified , 09/18/24) Home Meds Reported Medications Clopidogrel Bisulfate (CLOPIDOGREL) 75 Mg Tab, 1 TAB PO DAILY 09/19/24 Aspirin (Aspirin Low Dose) 81 Mg Tab, 1 TAB PO DAILY 09/19/24 Losartan Potassium (Losartan Potassium) 50 Mg Tab, 1 TAB PO DAILY 09/19/24 Carvedilol (Carvedilol) 12.5 Mg Tab, 1 TAB PO BID 09/19/24 Current Medications Current Medications Medications (Trade) Dose Ordered Sig/Nikko Route PRN Reason Start Time Stop Time Status Last Admin Aspirin (Ecotrin Enteric Coated Tablet) 81 mg DAILY PO 09/19/24 10:00 Clopidogrel Bisulfate (Plavix) 75 mg DAILY PO 09/19/24 10:00 Atorvastatin Calcium (Lipitor) 40 mg HS PO 09/19/24 22:00 09/19/24 21:39 Carvedilol (Coreg Tablet) 3.125 mg Q12HR PO 09/19/24 10:00 Losartan Potassium (Cozaar Tablet) 12.5 mg DAILY PO 09/19/24 10:00 Nicotine (Nicoderm 7MG/ 24HR) 1 patch DAILY TD 09/19/24 10:00 Review of Systems Constitutional: Generalized weakness Ears, Nose, & Throat: No symptom reported Eyes: No symptom reported Neurological: Lightheadedness, dizziness Pulmonary/Respiratory: No symptom reported Cardiovascular: No symptom reported Gastrointestinal: No symptom reported Genitourinary: No symptom reported Musculoskeletal: No symptom reported Skin: No symptom reported Psychiatric: No symptom reported Endocrine: No symptom reported Hemotologic/Lymphatic: No symptom reported Vital Signs Vital Signs Date Time Temp Pulse Resp B/P (MAP) Pulse Ox O2 Delivery O2 Flow Rate FiO2 09/19/24 21:39 89 126/81 09/19/24 21:00 97.9 19 99 97.9 09/19/24 18:39 Room Air* 0 21 Physical Exam GENERAL: Alert and oriented x 3. No acute distress. Obese. EYES: PERRL, EOMI. Anicteric. HENT: Moist mucous membranes. LUNGS: Clear to auscultation bilaterally. CARDIOVASCULAR: Regular rate and rhythm. ABDOMEN: Soft, non-tender and non-distended. EXTREMITIES: No edema. NEUROLOGIC: No focal neurological deficits. SKIN: Warm, dry. Labs/Diagnostic Data Labs Test 09/19/24 04:00 09/18/24 22:37 09/18/24 18:05 09/18/24 11:53 Range/Units White Blood Count 11.3 H 4.4-10.8 10^3/uL Red Blood Count 3.15 L 4.5-5.90 10^6/uL Hemoglobin 9.4 L 13.5-17.5 g/dL Hematocrit 27.9 #L 41.0-53.0 % Mean Corpuscular Volume 88.5 80.0-100.0 fL Mean Corpuscular Hemoglobin 29.8 28.0-32.0 pg Mean Corpuscular Hemoglobin Concent 33.7 32.0-36.0 g/dL Red Cell Distribution Width 14.3 11.8-14.3 % Platelet Count 210 140-450 10^3/uL Mean Platelet Volume 9.5 6.9-10.8 fL Neutrophils (%) (Auto) 69.2 37.0-80.0 % Lymphocytes (%) (Auto) 24.5 10.0-50.0 % Monocytes (%) (Auto) 5.4 0.0-12.0 % Eosinophils (%) (Auto) 0.6 0.0-7.0 % Basophils (%) (Auto) 0.3 0.0-2.0 % Neutrophils # (Auto) 7.8 1.6-8.6 10 ^3/uL Lymphocytes # (Auto) 2.8 0.4-5.4 10 ^3/uL Monocytes # (Auto) 0.6 0-1.3 10 ^3/uL Eosinophils # (Auto) 0.1 0-0.8 10 ^3/uL Basophils # (Auto) 0 0-0.2 10 ^3/uL Nucleated Red Blood Cells 0.0 % Prothrombin Time 10.9 9.3-11.8 sec Prothrombin Time INR 1.03 0.9-1.15 Activated Partial Thromboplast Time 23.8 L 24.5-34.5 SEC Sodium Level 146 H 136-145 mmol/L Potassium Level 4.2 3.5-5.1 mmol/L Chloride Level 115 H 98-107 mmol/L Carbon Dioxide Level 22 20-31 mmol/L Anion Gap 9 5-15 Blood Urea Nitrogen 68 H 9-23 mg/dL Creatinine 1.33 H 0.700-1.30 mg/dL Glomerular Filtration Rate Calc 65 >90 mL/min BUN/Creatinine Ratio 51.1 H 10.0-20.0 Serum Glucose 107 H 74-106 mg/dL Calcium Level 8.4 L 8.7-10.4 mg/dL Triglycerides Level 221 H < 150 mg/dL Cholesterol Level 132 < 200 mg/dL LDL Cholesterol 84 < 100 mg/dL HDL Cholesterol 20 L 40-59 mg/dL Troponin I High Sensitivity 77 *H </=54 ng/L D-Dimer, Quantitative 2.42 H 0.0-0.49 mg/L FEU C-Reactive Protein High Sensitivity 0.15 <1.0 mg/dL Test 09/18/24 11:10 Range/Units Urine Color Light-yellow Yellow Urine Clarity Clear Clear Urine pH 5.0 5.0-9.0 Urine Specific [place] 1.022 1.001-1.035 Urine Protein Negative Negative Urine Ketones Negative Negative Urine Blood Trace H Negative /uL Urine Nitrite Negative Negative Urine Bilirubin Negative Negative Urine Urobilinogen Normal Negative mg/dL Urine Leukocyte Esterase Negative Negative /uL Urine RBC 1 0 - 3 /hpf Urine Microscopic WBC 1 0-3 /HPF Urine Squamous Epithelial Cells Few <5 /hpf Urine Bacteria None seen None Seen /hpf Urine Glucose Normal Normal mg/dL Urine Opiates Screen Neg NEGATIVE Urine Fentanyl Screen Neg NEGATIVE Urine Barbiturates Screen Neg NEGATIVE Urine Phencyclidine Screen Neg NEGATIVE Urine Amphetamines Screen Neg NEGATIVE Urine Benzodiazepines Screen Neg NEGATIVE Urine Cocaine Screen Neg NEGATIVE Urine Cannabinoids Screen Neg NEGATIVE Microbiology Date/Time Source Procedure Growth Status 09/18/24 22:37 Blood Blood Culture - Preliminary NO GROWTH AFTER 24 HOURS OF INCUBATION. Resulted Assessment Acute coronary syndrome. Rule out progressive coronary artery disease. Coronary artery disease status post PTCA X 1DES. Hypertension. Dyslipidemia. Nicotine dependence. Obesity. Plan/Recommendation I agree with your ongoing assessment and care of plan. Patient has been seen by Sonya Castro NP on my behalf. We have discussed the plan with the patient. The patient has been scheduled for a cardiac catheterization with coronary angiogram at 1st available. All risks and benefits of the procedure were discussed with the patient who agrees to proceed with intervention. All questions answered. In the meantime, continue single-antiplatelet therapy, lipid lowering agent, and re-establish home antihypertensive therapy. Continue with a transthoracic echocardiogram to evaluate cardiac function. Initiate nicotine patch and smoking cessation consult. Monitor ECG changes closely and notify. Continue chest pain protocol. Additional plan as per the hospital course. Plan discussed with: Patient NYHA Physical activity limitations: NA Date of Service: Sep 18, 2024 Billing Provider: JACI BORREGO MD Cardiology Common Codes: 60564-[id number] INP/OBS CARE (High) Cardiology Consultation Codes: 58971-[id number] CONSULT <45MIN JACI BORREGO MD Sep 19, 2024 23:00
--- NOTE | 2024-09-19 23:04 | DVHPN2 ---
Progress Note - Dictate Date Seen: Sep 19, 2024 Medical Necessity Reason Pt with a Central, PICC or Fol: No Subjective Patient was seen and evaluated in follow up. Patient underwent coronary angiogram, left heart catheterization. PCI to 95% OM1 ruptured plaque, ISR to distal RCA stent, patent LAD stent. Patient was recommended for PCI in 4 weeks. WBC 11.3, HGB 9.4, HT 27.9, NA 146, BUN 68, TEACHERS' ASSISTANT 1.33, Trig 221, HDL 20. Telemetry reviewed. vital signs Vital Sign Date Time Temp Pulse Resp B/P (MAP) Pulse Ox O2 Delivery O2 Flow Rate FiO2 09/19/24 21:39 89 126/81 09/19/24 21:00 97.9 19 99 97.9 09/19/24 18:39 Room Air* 0 21 Total Intake and Output 09/18/24 09/18/24 09/19/24 15:00 23:00 07:00 Intake Total 600 ml Output Total 1500 ml Balance -900 ml medications Current Medications Medications Dose Ordered Sig/Nikko Route Start Time Stop Time Status Last Admin Dose Admin Nitroglycerin 0.4 mg Q5MINP PRN SL 09/18/24 15:15 Morphine Sulfate 2 mg Q30M PRN IV 09/18/24 15:15 Aspirin 81 mg DAILY PO 09/19/24 10:00 Morphine Sulfate 1 mg Q4HPRN PRN IV 09/18/24 15:15 Acetaminophen/ Hydrocodone Bitart 1 tab Q6HPRN PRN PO 09/18/24 15:15 Acetaminophen 500 mg Q8HP PRN PO 09/18/24 15:15 Ondansetron HCl 4 mg Q6HP PRN IV 09/18/24 15:15 09/18/24 16:02 Carvedilol 3.125 mg Q12HR PO 09/18/24 22:00 09/19/24 21:39 Prochlorperazine Edisylate 10 mg Q4HPRN PRN IV 09/18/24 22:15 09/19/24 06:06 Lactated Ringer's 1,000 ml @ 75 mls/hr [id number] IV 09/18/24 22:15 09/18/24 22:27 Clopidogrel Bisulfate 75 mg DAILY PO 09/19/24 10:00 Atorvastatin Calcium 40 mg HS PO 09/19/24 22:00 8/8/25 21:39 Carvedilol 3.125 mg Q12HR PO 09/19/24 10:00 Losartan Potassium 12.5 mg DAILY PO 09/19/24 10:00 Nicotine 1 patch DAILY TD 09/19/24 10:00 objective GENERAL: Alert and oriented x 3. No acute distress. Obese. EYES: PERRL, EOMI. Anicteric. HENT: Moist mucous membranes. LUNGS: Clear to auscultation bilaterally. CARDIOVASCULAR: Regular rate and rhythm. ABDOMEN: Soft, non-tender and non-distended. EXTREMITIES: No edema. NEUROLOGIC: No focal neurological deficits. SKIN: Warm, dry. laboratory and microbiology Laboratory Tests 09/19/24 04:00 Test 09/19/24 04:00 Range/Units Serum Glucose 107 H 74-106 mg/dL Problem List Acute coronary syndrome. Coronary artery disease status post PTCA X 1DES. Hypertension. Dyslipidemia. Nicotine dependence. Obesity. CKD. Assessment/Plan Continued all current supportive medical care. All questions answered. Continue single-antiplatelet therapy, lipid lowering agent, and re-establish home antihypertensive therapy. Continue with a transthoracic echocardiogram to evaluate cardiac function. Nicotine patch. Monitor ECG changes closely and notify. Continue chest pain protocol. Additional plan as per the hospital course. Plan discussed with: Patient JACI BORREGO MD Sep 19, 2024 23:04
[2024-09-20] VITALS (7 sets, daily range): BP systolic 131–134; BP diastolic 70–88; PULSE 80–97; RESP 16–20; TEMP 97.8–98.6; O2SAT 95–100
[2024-09-20 07:46] LABS: Alanine Aminotransferase 13 U/L (7-40); Albumin 3.6 g/dL (3.2-4.8); Alkaline Phosphatase 56 U/L (46-116); Anion Gap 8 (5-15); BUN/Creatinine Ratio 26.8 (10.0-20.0); Bilirubin, Total 0.8 mg/dL (0.2-1.0); Carbon Dioxide 24 mmol/L (20-31); Glucose 105 mg/dL (74-106); Potassium 4.1 mmol/L (3.5-5.1); Sodium 145 mmol/L (136-145)
[2024-09-20 07:51] LABS: Blood Urea Nitrogen 33 mg/dL (9-23); Calcium 8.6 mg/dL (8.7-10.4); Chloride 113 mmol/L (98-107); Total Protein 5.5 g/dL (5.7-8.2)
--- NOTE | 2024-09-20 16:54 | DVHDS2 ---
Discharge Summary Date of Admission Sep 18, 2024 at 15:04 Date of Discharge: Sep 20, 2024 Admitting Diagnosis Acute coronary syndrome, probable NSTEMI type 2 Labs/Diagnostic Data: Laboratory Results Test 09/20/24 06:46 09/19/24 04:00 09/18/24 22:37 09/18/24 18:05 Sodium Level 145 mmol/L (136-145) Potassium Level 4.1 mmol/L (3.5-5.1) Chloride Level 113 mmol/L (98-107) Carbon Dioxide Level 24 mmol/L (20-31) Anion Gap 8 (5-15) Blood Urea Nitrogen 33 mg/dL (9-23) Creatinine 1.23 mg/dL (0.700-1.30) Glomerular Filtration Rate Calc 72 mL/min (>90) BUN/Creatinine Ratio 26.8 (10.0-20.0) Serum Glucose 105 mg/dL (74-106) Calcium Level 8.6 mg/dL (8.7-10.4) Total Bilirubin 0.8 mg/dL (0.2-1.0) Aspartate Amino Transferase (AST) 17 U/L (13-40) Alanine Aminotransferase (ALT) 13 U/L (7-40) Alkaline Phosphatase 56 U/L (46-116) Total Protein 5.5 g/dL (5.7-8.2) Albumin 3.6 g/dL (3.2-4.8) White Blood Count 11.3 10^3/uL (4.4-10.8) Red Blood Count 3.15 10^6/uL (4.5-5.90) Hemoglobin 9.4 g/dL (13.5-17.5) Hematocrit 27.9 % (41.0-53.0) Mean Corpuscular Volume 88.5 fL (80.0-100.0) Mean Corpuscular Hemoglobin 29.8 pg (28.0-32.0) Mean Corpuscular Hemoglobin Concent 33.7 g/dL (32.0-36.0) Red Cell Distribution Width 14.3 % (11.8-14.3) Platelet Count 210 10^3/uL (140-450) Mean Platelet Volume 9.5 fL (6.9-10.8) Neutrophils (%) (Auto) 69.2 % (37.0-80.0) Lymphocytes (%) (Auto) 24.5 % (10.0-50.0) Monocytes (%) (Auto) 5.4 % (0.0-12.0) Eosinophils (%) (Auto) 0.6 % (0.0-7.0) Basophils (%) (Auto) 0.3 % (0.0-2.0) Neutrophils # (Auto) 7.8 10 ^3/uL (1.6-8.6) Lymphocytes # (Auto) 2.8 10 ^3/uL (0.4-5.4) Monocytes # (Auto) 0.6 10 ^3/uL (0-1.3) Eosinophils # (Auto) 0.1 10 ^3/uL (0-0.8) Basophils # (Auto) 0 10 ^3/uL (0-0.2) Nucleated Red Blood Cells 0.0 % Prothrombin Time 10.9 sec (9.3-11.8) Prothrombin Time INR 1.03 (0.9-1.15) Activated Partial Thromboplast Time 23.8 SEC (24.5-34.5) Triglycerides Level 221 mg/dL (< 150) Cholesterol Level 132 mg/dL (< 200) LDL Cholesterol 84 mg/dL (< 100) HDL Cholesterol 20 mg/dL (40-59) Troponin I High Sensitivity 77 ng/L (</=54) D-Dimer, Quantitative 2.42 mg/L FEU (0.0-0.49) Test 09/18/24 11:53 09/18/24 11:10 C-Reactive Protein High Sensitivity 0.15 mg/dL (<1.0) Urine Color Light-yellow (Yellow) Urine Clarity Clear (Clear) Urine pH 5.0 (5.0-9.0) Urine Specific [place] 1.022 (1.001-1.035) Urine Protein Negative (Negative) Urine Ketones Negative (Negative) Urine Blood Trace /uL (Negative) Urine Nitrite Negative (Negative) Urine Bilirubin Negative (Negative) Urine Urobilinogen Normal mg/dL (Negative) Urine Leukocyte Esterase Negative /uL (Negative) Urine RBC 1 /hpf (0 - 3) Urine Microscopic WBC 1 /HPF (0-3) Urine Squamous Epithelial Cells Few /hpf (<5) Urine Bacteria None seen /hpf (None Seen) Urine Glucose Normal mg/dL (Normal) Urine Opiates Screen Neg (NEGATIVE) Urine Fentanyl Screen Neg (NEGATIVE) Urine Barbiturates Screen Neg (NEGATIVE) Urine Phencyclidine Screen Neg (NEGATIVE) Urine Amphetamines Screen Neg (NEGATIVE) Urine Benzodiazepines Screen Neg (NEGATIVE) Urine Cocaine Screen Neg (NEGATIVE) Urine Cannabinoids Screen Neg (NEGATIVE) Other Laboratory Tests 09/20/24 06:46 09/19/24 04:00 Brief Hx & Hospital Course: History of Present Illness Patient is a 49-year-old male transferred from [facility] with elevated troponin and rule out ACS. Patient presented to the hospital with substernal chest discomfort, diaphoresis, nausea, and dyspnea. With the time of assessment, patient continues to have nausea. Denies any chest pain at this time. Patient did have mild elevation in troponin levels. 12 lead ECG was assess, without any acute ST changes noted. Patient does have a significant history of stent placement x2, primary hypertension, and current nicotine dependence. Patient states he has been compliant with his dual antiplatelet therapy. Patient will be admitted in the hospital for further cardiac workup as well as treatment for his current symptoms. Course of hospitalization: Cardiology consultation was obtained after admission. Patient went for CT angiogram of the chest which was negative for pulmonary embolism. Patient was given aggressive IV hydration, followed by patient going to left heart catheterization with findings of 95% occluded circumflex/obtuse marginal 1. Patient had PTCA and stent placement. Upon admission, patient was continued on his home dual antiplatelet therapy with aspirin and Plavix. Postoperatively, the patient has been recovering without any issues. All previous symptoms prior to coming in the hospital has resolved. Patient's renal function has returned back to being within normal limits. Long discussion was made with the patient and family regarding lifestyle modification including the need to monitor diet as well as smoking cessation. Patient will be continued on his current antiplatelet therapy given his previous stents are patent, expressing no failure of current treatment. Echocardiogram reveals ejection fraction of 65%, with no further requirement of guideline directed medical therapy other than continuing carvedilol as previously ordered. Patient will follow up with his primary senior civil engineer once returning [place]. All parties are in agreement. All questions answered. Physical examination General: Alert and Oriented x3. No acute distress. Well-nourished. Obese Eyes: EOMI. Anicteric. HENT: Moist mucous membranes. Lungs: Clear to auscultation bilaterally. No accessory muscle use. Cardiovascular: Regular rate and rhythm. No murmur. No JVD. Abdomen: Soft, non-tender and non-distended. No palpable masses. Extremities: No edema. Non-tender. Skin: No rashes or lesions. Warm. Neurologic: No focal neurological deficits. CN II-XII grossly intact, but not individually tested. Psychiatric: Cooperative. Appropriate mood and affect. Total time spent with patient discussing and formulating plan of care: 35 minutes. This medical document was created using an electronic medical record system with [employer] dictation system. Although this document has been carefully reviewed, there may still be some phonetic and typographical errors. These areas are purely typographical due to imperfections of the software programs, and do not reflect any compromise in the patient's medical care. Consults/Reason for consult Cardiology: Acute coronary syndrome Operations or Procedures 09/19/2024: Left heart catheterization with PTCA and stent placement to obtuse marginal Condition at Discharge: Fair Final Diagnosis/Problems List NSTEMI involving OM1 Secondary diagnosis: History of CAD with stent placement x2 Nicotine dependence Obesity Discharge Disposition: Home Discharge Instruct/Medications Diet: Cardiac 2g Na,low cholest Activity: No Restrictions, As Tolerated Follow Up/Referral: Follow up with the primary senior civil engineer at next available appointment. Follow up with PCP in 1-2 weeks Medications: Continue previous home medications including Plavix and aspirin and carvedilol Scheduled Aspirin (Aspirin Low Dose), 1 TAB PO DAILY, (Reported) Carvedilol (Carvedilol), 1 TAB PO BID, (Reported) Clopidogrel Bisulfate (Clopidogrel), 1 TAB PO DAILY, (Reported) Losartan Potassium (Losartan Potassium), 1 TAB PO DAILY, (Reported) 36 Discharge Statement: "Patient was advised to return to the ER or call 911 if any headaches, dizziness, shortness of breath, chest pain, abdominal pain, bleeding, fevers, or worsening of medical condition. Patient was counseled about treatment plan, medications, possible side effects, patientverbalized understanding. All questions were answered to the best of my ability. This discharge took greater then 30 minutes in planning, reviewing documentation, counseling the patient, and discussing with other team members." ASSESSMENT ASSESSMENT Assessment NSTEMI involving OM1 Date of Service: Sep 20, 2024 Billing Provider: SADIA CLEMENTS NP Common Visit Codes: 25058-CZL/OBS DISCH DAY >30min SADIA CLEMENTS NP Sep 20, 2024 16:54
--- NOTE | 2024-09-20 21:11 | DVHPN2 ---
Progress Note - Dictate Date Seen: Sep 20, 2024 Medical Necessity Reason Pt with a Central, PICC or Fol: No Subjective Patient was seen and evaluated in follow up. Patient has no new complaints at this time. Patient denies any cardiac symptoms. Patient is cardiac stable for discharge. Telemetry reviewed. vital signs Vital Sign Date Time Temp Pulse Resp B/P (MAP) Pulse Ox O2 Delivery O2 Flow Rate FiO2 09/20/24 18:28 97.9 80 20 98 09/20/24 16:34 131/81 (98) 09/20/24 08:00 Room Air* 0 21 Total Intake and Output 09/19/24 09/19/24 09/20/24 14:59 22:59 06:59 Intake Total 375 ml 500 ml Output Total 500 ml 1700 ml Balance -125 ml -1200 ml objective GENERAL: Alert and oriented x 3. No acute distress. Obese. EYES: PERRL, EOMI. Anicteric. HENT: Moist mucous membranes. LUNGS: Clear to auscultation bilaterally. CARDIOVASCULAR: Regular rate and rhythm. ABDOMEN: Soft, non-tender and non-distended. EXTREMITIES: No edema. NEUROLOGIC: No focal neurological deficits. SKIN: Warm, dry. laboratory and microbiology Laboratory Tests 09/20/24 06:46 09/19/24 04:00 Test 09/20/24 06:46 Range/Units Serum Glucose 105 74-106 mg/dL Problem List Acute coronary syndrome. Coronary artery disease status post PTCA X 1DES. Hypertension. Dyslipidemia. Nicotine dependence. Obesity. CKD. Assessment/Plan Continued all current supportive medical care. Aspirin, Lipitor, Plavix. Losartan, Coreg. Morphine and [place] for pain. Additional plan as per the hospital course. Plan discussed with: Patient JACI BORREGO MD Sep 20, 2024 21:11
== END 2024-09-20 18:45 | disposition home or self-care (01) | DRG 174 ==
LOC: EDBD 08:02 → ER 08:02 → OVERFLOW 15:04 → TELE-WESTW 09-19 18:35
PROVIDERS: ADMIT Nurse Practitioner Acute Care; ATTEND Nurse Practitioner Acute Care
PROC: 027034Z Dilation of Coronary Artery, One Artery with Drug-eluting Intraluminal Device, Percutaneous Approach (ICD-10-PCS; principal; 2024-09-19)
PROC: 4A023N7 Measurement of Cardiac Sampling and Pressure, Left Heart, Percutaneous Approach (ICD-10-PCS; 2024-09-19)
PROC: B211YZZ Fluoroscopy of Multiple Coronary Arteries using Other Contrast (ICD-10-PCS; 2024-09-19)
DX: I21.4 Non-ST elevation (NSTEMI) myocardial infarction (principal); T82.855A Stenosis of coronary artery stent, initial encounter; I25.10 Atherosclerotic heart disease of native coronary artery without angina pectoris; N18.9 Chronic kidney disease, unspecified; F17.210 Nicotine dependence, cigarettes, uncomplicated; E78.5 Hyperlipidemia, unspecified; E66.01 Morbid (severe) obesity due to excess calories; I12.9 Hypertensive chronic kidney disease with stage 1 through stage 4 chronic kidney disease, or unspecified chronic kidney disease; Z79.899 Other long term (current) drug therapy; Z68.35 Body mass index [BMI] 35.0-35.9, adult; Z71.6 Tobacco abuse counseling; Z79.02 Long term (current) use of antithrombotics/antiplatelets; Y84.8 Other medical procedures as the cause of abnormal reaction of the patient, or of later complication, without mention of misadventure at the time of the procedure; Y92.89 Other specified places as the place of occurrence of the external cause
CPT/HCPCS: 36415; 70450; 71045; 71275; 80048; 80053; 80061; 80307; 81001; 84484; 85025; 85379; 85610; 85730; 86141; 87040; 92941; 93005; 93306; 93458; 96374; 96375; 99152; 99291; 99292; G0378; J2250; J2405; Q9967